=== PATIENT | female | born 1940 | race Caucasian/White ===

== ENCOUNTER → 2018-08-25 16:58 | Outpatient (CLI) | payer MEDICARE, OTHER ==
[2018-08-25 18:45] LABS: ALBUMIN 3.8 g/dL (3.4-5.0); ALKALINE PHOSPHATASE 93 U/L (46-116); ALT (SGPT) 24 U/L (10-68); BILIRUBIN - TOTAL 0.68 mg/dL (0.2-1.3); CALC OSMOLALITY 283 mosm/kg (275-300); CALCIUM 9.2 mg/dL (8.5-10.1); CARBON DIOXIDE 29.4 mmol/L (21.0-32.0); CHLORIDE - SERUM 102 mmol/L (98-107); CREATININE - SERUM 0.7 mg/dL (0.6-1.3); GLUCOSE 121 mg/dL (74-106); PROTEIN - SERUM 7.4 g/dL (6.4-8.2); SODIUM 140 mmol/L (136-145); UREA NITROGEN 24 mg/dL (7-18); eGFR NON AFRICAN AMERICAN 86 mL/min (90-120)
== END | disposition home or self-care (01) ==
LOC: D.LABREF 16:58
PROVIDERS: ATTEND Internal Medicine Cardiovascular Disease
DX: I48.91 Unspecified atrial fibrillation (principal)

== ENCOUNTER → 2019-10-10 09:20 | Outpatient (CLI) | payer MEDICARE, OTHER | END | disposition home or self-care (01) | LOC: D.HCCARDIO 09:20 | PROVIDERS: ATTEND Internal Medicine Cardiovascular Disease | DX: I25.10 Atherosclerotic heart disease of native coronary artery without angina pectoris (principal) ==

== ENCOUNTER 2019-10-19 12:06 | Outpatient (CLI) | payer MEDICARE, OTHER ==
[~2019-10-19] VITALS: Ht 167.6 cm; Wt 90.5 kg
--- NOTE | ~2019-10-19 | HEMODYNAMI ---
PATIENT:JERONIMO ADAMS MEDICAL RECORD: [id number] : 38 LOCATION:[facility] ADMISSION DATE: 10/19/19 Generatedon:10/19/201914:57 Patient name: JERONIMO ADAMS Patient #: [id number] SN: : 1940 Date of study: 10/19/2019 Page: Of Hemodynamic Procedure Report Patient Data Patient Demographics Procedure consent was obtained First Name: JERONIMO Gender: Female Last Name: BRYAN : 1940 [facility] Initial: MARJ Age: 78 year(s) Patient #: [id number] Race: Unknown Additional ID: [id number] Contact details Address: [address] [address] State: [place] City: [place] Zip code: [address] Past Medical History Allergies: No known allergies Admission Admission Data Admission Date: 10/19/2019 Admission Time: 12:06 Arrival Date: 10/19/2019 Arrival Time: 0:00 Height (in.): 66.14 BSA: 2 (m2) Height (cm.): 168 BMI: 31.89 (kg/m2) Weight (lbs.): 198.42 Weight (kg.): 90 Lab Results Lab Result Date: 10/19/2019 Lab Result Time: 0:00 Biochemistry Name Units Result Min Max BUN mg/dl 30 --(----)-* 7 18 Creatinine mg/dl 1 --(--*-)-- 0.6 1.3 eGFR ml/min 57 *-(----)-- 90 120 NONAFRICAN CBC Name Units Result Min Max Hematocrit % 41.9 -*(----)-- 42 54 Hemoglobin g/dl 13.3 -*(----)-- 13.5 17.5 Procedure Procedure Types Cath Procedure Diagnostic Procedure LHC LHC w/Coronaries w/Grafts Sedation Charges Moderate Sedation up to 15 minutes Procedure Description Procedure Date Procedure Date: 10/19/2019 Procedure Start Time: 14:28 Procedure End Time: 14:56 Procedure Staff Name Function Scout Young MD Performing Physician Giselle Cope RN Nurse Mahogany Santacruz RT Scrub Nathalie Pizarro RT Typing Checker Lexus Hightower RT Monitor Procedure Data Cath Procedure Fluoroscopy Diagnostic fluoroscopy Total fluoroscopy Time: 7.3 time: 7.3 min min Diagnostic fluoroscopy Total fluoroscopy dose: 805 dose: 805 mGy mGy Contrast Material Contrast Material Type Amount (ml) Isovue 300 99 Entry Location Entry Primary Successful Side Size Upsize Upsize Entry Closure Succes sful Closure Location (Fr) 1 (Fr) 2 (Fr) Remarks Device Remarks Femoral Right 5 Fr Exoseal artery Estimated blood loss: 5 ml Diagnostic catheters Device Type Used For End Catheter Placement DIAGNOSTIC JL 4.0 5Fr Left Coronary catheter ([id number]) Angiography DIAGNOSTIC AR MOD 5Fr Procedure Catheter (158260F) DIAGNOSTIC LCB 5Fr Procedure catheter ([id number]) DIAGNOSTIC IM 5Fr Procedure catheter (155289P) DIAGNOSTIC Pigtail 5Fr LV Angiography catheter ([id number]) Procedure Complications No complications Procedure Medications Medication Administration Route Dosage 0.9% NaCl I.V. 100 ml/hr Oxygen etCO2 Nasal cannula 2 l/min Lidocaine 2% added to field 20 Heparin Flush Bag added to field 2 bags (1000units/500ml NS) Versed I.V. 2 mg Fentanyl I.V. 50 mcg Hemodynamics Rest BSA: 2 (m2) HGB: 13.3 (g/dl) O2 Consumption: Estimated: 186.02 (ml/min) O2 Consu mption indexed: Estimated:93.01 (ml/min/m) Heart Rate: 78 (bpm) Pressure Samples Time Site Value (mmHg) Purpose Heart Use Rate(bpm) 14:51 LV 168/6,18 Snapshot 74 Gradients Valve Time Site Site Mean SEP/DFP Peak To Heart Use 1 2 (mmHg) (sec/min) Peak Rate (mmHg) (bpm) Aortic 14:52 LV AO 65 Snapshots Pre Cath Intra NCS Post Cath Vital Signs Time Heart Resp SPO2 etCO2 NIBP (mmHg) Rhythm Pain Sedation Rate (ipm) (%) (mmHg) Status Level (bpm) 14:18:38 73 29 96 26.8 132/73(93) A-Fib 0 (11) 10(A) , No pain 14:23:00 63 18 97 21.6 132/74(93) A-Fib 0 (11) 10(A) , No pain 14:27:30 73 14 98 42 126/60(101) A-Fib 0 (11) 10(A) , No pain 14:31:57 65 18 98 35.3 138/68(95) A-Fib 0 (11) 9(A) , No pain 14:36:15 79 16 98 37.5 134/76(123) A-Fib 0 (11) 9(A) , No pain 14:40:35 70 14 98 20.2 128/74(95) A-Fib 0 (11) 9(A) , No pain 14:44:59 67 12 99 39 148/71(128) A-Fib 0 (11) 9(A) , No pain 14:49:28 72 14 100 34.5 145/71(112) A-Fib 0 (11) 10(A) , No pain 14:54:00 77 12 99 18.7 147/73(102) A-Fib 0 (11) 10(A) , No pain Medications Time Medication Route Dose Verified Delivered Reason Notes Eff ectiveness by by 14:15:27 0.9% NaCl I.V. 100 Scout Giselle used for ml/hr Hector Cope automatic coin machine mechanic 14:15:33 Oxygen etCO2 2 Scout Giselle used for Nasal l/min Hector Cope procedure cannula RN 14:15:37 Lidocaine 2% added 20ml Scout Scout for local to vial Hector Young MD anesthetic field 14:15:41 Heparin Flush added 2 Scout Scout used for Bag to bags Hector Young MD procedure (1000units/500ml field NS) 14:28:06 Versed I.V. 2 mg Scout Giselle for Hector Cope sedation RN 14:28:10 Fentanyl I.V. 50 Scout Giselle for mcg Hector Cope sedation color depositing machine tender Log Time Note 14:01:00 Informed consent obtained and on chart 14:01:41 Procedure Status Elective Heart Cath (OP). 14:01:42 Time tracking: Regular hours (M-F 7:00 - 5:00) 14:01:45 Plan of Care:Hemodynamics will remain stable., Cardiac rhythm will remain stable., Comfort level will be maintained., Respiratory function will remain adequate., Patient/ family verbilizes understanding of procedure., Procedure tolerated without complication., Recovers from procedure without complications.. 14:02:06 Mahogany Noam HUMPHREYS(R) sent for patient. Start room use. 14:02:19 H&P Date Dictated: 10/11/2019 Within 30 days and on chart., H&P Addendum completed by physician on day of procedure. (MUST COMPLETE FOR ALL OUTPATIENTS). 14:02:26 Patient allergic to No known allergies 14:05:05 Lab Result : BUN 30 mg/dl 14:05:05 Lab Result : Creatinine 1 mg/dl 14:05:05 Lab Result : eGFR NONAFRICAN 57 ml/min 14:05:06 Lab Result : Hematocrit 41.9 % 14:05:06 Lab Result : Hemoglobin 13.3 g/dl 14:10:20 Patient received from Pre/Post Procedure Room to CCL 1 Alert and oriented. Tansferred to table in Supine position. 14:10:21 Warm blankets applied, and geetha hugger turned on for patient comfort. 14:10:22 Correct patient and procedure confirmed by team. 14:10:22 ECG and BP/O2 sat monitors applied to patient. 14:10:37 Pre-procedure instructions explained to patient. 14:10:37 Pre-op teaching completed and patient verbalized understanding. 14:10:39 Family in patients room. 14:10:40 Patient NPO since Midnight. 14:10:42 Is the patient allergic to Iodine/contrast media? No. 14:10:43 Is patient on blood thinner?Yes 14:11:11 ACC The patient was administered the following blood thiners within the last 24 hours: Xarelto 14:11:22 Patient diabetic? Yes. 14:11:26 Patient not . Patient is over age 55. 14:11:29 Previous problem with sedation/anesthesia? No ? 14:11:30 Snore? Yes 14:11:31 Sleep apnea? No 14:11:32 Deviated septum? No 14:11:33 Opens mouth fully? Yes 14:11:34 Sticks out tongue? Yes 14:11:37 Airway obstruction? No ? 14:11:38 Dentures? No ? 14:12:02 Patient pain scale 0/10 ?. 14:12:16 Procedure type changed to Cath procedure, Diagnostic procedure, LHC, LH C w/Coronaries w/Grafts, Sedation Charges, Moderate Sedation up to 15 minutes 14:12:21 Lab results completed and on chart. 14:13:21 Right groin area was prepped with chlora-prep and draped in sterile fashion 14:13:22 Alarms reviewed by R. N. 14:13:22 Sharps counted by scrub and verified by R.N. 14:13:30 Pre procedure: right dorsailis pedis pulse 1+ Palpable, but thready & weak; easily obliterated 14:13:56 Stress Test: yes; abnormal ANTERIOR, INFERIOR 14:14:01 Use device set Femoral Dx 14:14:02 ACIST Syringe (02752) opened to sterile field. 14:14:02 Bag Decanter (2002S) opened to sterile field. 14:14:03 ACIST Hand Control (84521) opened to sterile field. 14:14:04 ACIST Manifold (28177) opened to sterile field. 14:14:04 Tegaderm 4 x 4 (1626W) opened to sterile field. 14:15:27 0.9% NaCl 100 ml/hr I.V. was administered by Giselle Cope RN; used for procedure; Verbal order read back and verified. 14:15:33 Oxygen 2 l/min etCO2 Nasal cannula was administered by Giselle Cope RN ; used for procedure; Verbal order read back and verified. 14:15:37 Lidocaine 2% 20ml vial added to field was administered by Scout Young MD ; for local anesthetic; Verbal order read back and verified. 14:15:41 Heparin Flush Bag (1000units/500ml NS) 2 bags added to field was administered by Scout Young MD; used for procedure; Verbal order read back and verified. 14:16:58 SHEATH 5FR Wynot (THV808) opened to sterile field. 14:16:59 EMERALD Guide Wire (259-967) opened to sterile field. 14:17:15 Vital chart was started 14:17:17 Baseline sample Acquired. 14:17:38 Rhythm: atrial fibrillation 14:17:40 Full Disclosure recording started 14:17:41 - 14:18: Arrival Date: 10/19/2019 12:00:00 AM 14:18:32 Patient Height : 66.14 inches 14:18:39 Patient Weight : 198.42 lbs 14:23:50 Risk of Mortality: 0.1 14:23:54 Risk of blood transfusion: 0.3 14:23:58 Risk of VIK: 0.8 14:24:06 Physician arrived 14:24:07 --------ALL STOP TIME OUT------ 14:24:08 Final Timeout: patient, procedure, and site verified with staff and physician. All members of the team are in agreement. 14:24:11 Right groin site verified by team. 14:24:17 Fire Safety Assessment: A--An alcohol-based skin anteseptic being used preoperatively., C--Open oxygen or nitrous oxide is being used., D--An ESU, laser, or fiber-optic light is being used. 14:24:26 Physical assessment completed. ASA score P 2 - A patient with mild systemic disease as per Scout Young MD. 14:25:04 3a) 45-59 Moderately reduced kidney function. 14:25:09 Maximum allowable contrast dose (3.7 X eGFR X 0.75)158 ml. 14:25:16 Sedation plan: IV Moderate Sedation Medication:Versed, Fentanyl 14:28:06 Versed 2 mg I.V. was administered by Giselle Cope RN; for sedation; Verbal order read back and verified. 14:28:10 Fentanyl 50 mcg I.V. was administered by Giselle Cope RN; for sedation ; Verbal order read back and verified. 14:28:49 Procedure started. 14:28:55 Local anesthetic to right femoral artery with Lidocaine 2% by Scout sagastume MD.INITIAL ACCESS ONLY 14:30:03 Zero performed for pressure channel P1 14:30:39 A 5 Fr sheath was inserted into the Right Femoral artery 14:33:02 A DIAGNOSTIC JL 4.0 5Fr catheter ([id number]) was advanced over the wire and used for Left Coronary Angiography. 14:33:49 LCA angiography performed. 14:33:53 Injector settings: Ml/sec: 3, Volume: 6, 14:34:57 Catheter removed. 14:35:49 A DIAGNOSTIC AR MOD 5Fr Catheter ([id number]) was advanced over the wire and used for Procedure. 14:36:42 RCA angiography performed AND CLOSED. 14:37:05 Injector settings: Ml/sec: 3, Volume: 6, 14:38:37 SVG to RPDA angiography performed. 14:38:41 Injector settings: Ml/sec: 3, Volume: 6, 14:39:01 Catheter removed. 14:39:36 A DIAGNOSTIC LCB 5Fr catheter (308014H) was advanced over the wire and used for Procedure. 14:41:09 SVG to Circ angiography performed. 14:41:15 Injector settings: Ml/sec: 3, Volume: 6, 14:41:17 Catheter removed. 14:41:29 A DIAGNOSTIC IM 5Fr catheter (159810D) was advanced over the wire and used for Procedure. 14:44:00 GLIDE WIRE ANGLE 260cm (GF6543) opened to sterile field. 14:44:48 TORQUE DEVICE PLASTIC .038 ( TD01) opened to sterile field. 14:47:02 CHAN to LAD angiography performed. 14:47:10 Injector settings: Ml/sec: 3, Volume: 6, 14:49:20 Catheter removed. 14:49:52 A DIAGNOSTIC Pigtail 5Fr catheter (616881Y) was advanced over the wire and used for LV Angiography. 14:49:58 EXOSEAL 5Fr (EX500) opened to sterile field. 14:50:12 LV gram done using PARR 14:50:17 Injector settings: Ml/sec: 5, Volume: 15, 14:51:26 LV hemodynamics recorded. 14:51:40 EF : 45 % 14:52:00 Catheter removed. 14:52:36 Sheath removed intact; hemostasis achieved with Exoseal to the Right Femoral artery. 14:52:45 Contrast amount:Isovue 300 99ml. 14:52:48 Maximum allowable dose exceeded? No. 14:52:56 Fluoroscopy time 07.30 minutes. 14:53:01 Fluoroscopy dose: 805 mGy 14:53:01 Flurop Dose total: 805 14:53:09 Dose Area Product 27671 mGy/cm. 14:53:11 Procedure ended.(Physican Out) 14:53:24 Sharps counted by scrub and verified by R.N. 14:53:30 Post-op/insertion site Right Femoral artery dressed using a 4 x 4 and Tegaderm. 14:53:38 Post-procedure physical assessment completed. ASA score P 2 - A patient with mild systemic disease as per Scout Young MD. 14:53:58 Post procedure rhythm: unchanged. 14:54:02 Estimated blood loss: 5 ml 14:54:09 Post procedure instruction explained to patient.Patient verbalizes understanding. 14:54:11 Patient needs reinforcement of post procedure teaching. 14:54:54 Procedure and supply charges have been captured, reviewed, submitted an d are correct. 14:55:32 Procedure Complication : No complications 14:55:35 Vital chart was stopped 14:55:41 [facility] Findings: mild to moderate CAD (<70%) 14:55:47 Operative report dictated upon procedure completion. 14:55:49 See physician's report for complete and final results. 14:55:51 Report given to Pre/Post Procedure Room. 14:55:56 Patient transfered to Pre/Post Procedure Room with Stretcher. 14:56:05 Procedure ended. 14:56:05 Full Disclosure recording stopped 14:56:11 End room use (Document Last) Device Usage Item Name Manufacture Quantity Catalog Hospital Part Current Minimal Lot# / Number Charge Number Stock Stock Serial# Code ACIST Acist 1 02967 204263 627191 [id number] 20 Syringe Medical (58671) Systems Inc Bag Microtek 1 759573 01508 991383 5 Decanter Medical Inc. () ACIST Hand Acist 1 20630 090221 565832 901454 5 Control Medical (90651) Systems Inc ACIST Acist 1 83581 088022 007565 521780 5 Manifold Medical (57018) Systems Inc Tegaderm 4 3M 1 1626W 032659 716812 146707 5 x 4 (1626W) SHEATH 5FR Terumo 1 [id number] 463453 633844 702456 5 Wynot (SGU233) EMERALD Cardinal 1 502-455 322568 159671 799587 5 Guide Wire [facility] (502-455) DIAGNOSTIC Cardinal 1 600600P 413254 360373 642588 10 JL 4.0 5Fr Health catheter (763751G) DIAGNOSTIC Cardinal 1 001789M 316788 779733 379220 15 AR MOD 5Fr Health Catheter (048905T) DIAGNOSTIC Cardinal 1 197603H 540296 097842 787863 5 LCB 5Fr Health catheter (036237S) DIAGNOSTIC Cardinal 1 249340H 479034 175796 912886 5 IM 5Fr Health catheter (678439H) GLIDE WIRE Terumo 1 HQ2788 934602 333322 173890 5 ANGLE 260cm (RG3137) TORQUE [place] 1 TD01 408096 584048 104202 5 DEVICE Scientific PLASTIC .038 ( TD01) DIAGNOSTIC Cardinal 1 548555I 157009 913895 096685 5 Pigtail Health 5Fr catheter (542369A) EXOSEAL Cardinal 1 EX500 491317 209165 722346 10 5Fr Health (EX500) Signature Audit [place] Stage Time Signature Unsigned Intra-Procedure 10/19/2019 [place] 2:56:43 PM Campbell RT(R) (CV) Intra-Procedure 10/19/2019 Giselle Cope 2:57:16 PM RN Intra-Procedure 10/19/2019 Scout Young MD 2:57:44 PM [id number] [place] [address]
[2019-10-19] MEDS ORDERED: XARELTO20 MG PO (12:51)
[2019-10-19] MEDS ORDERED: METFORMIN HCL500 M1 PO (12:51)
[2019-10-19] MEDS ORDERED: CRESTOR20 MG PO (12:56)
[2019-10-19] MEDS ORDERED: FUROSEMIDE40 MG PO (12:56)
[2019-10-19] MEDS ORDERED: MICARDIS40 MG PO (12:57)
[2019-10-19] MEDS ORDERED: KLOR-CON 1010 MEQ PO (12:58)
[2019-10-19] MEDS ORDERED: ZYLOPRIM100 MG PO (12:58)
[2019-10-19 13:15] VITALS: BP 157/77; Ht 167.6 cm; Wt 90.5 kg
[2019-10-19 13:30] LABS: BASOPHILS 0.4 % (0-2); EOSINOPHILS 2.2 % (0-7); HEMATOCRIT 41.9 % (36.0-48.0); HEMOGLOBIN 13.3 g/dL (12-16); IMMATURE GRANULOCYTES 0.2 % (0-5); LYMPHOCYTES 26.2 % (15-50); MCH 30.1 pg (26.0-34.0); MCHC 31.7 g/dL (31.0-37.0); MCV 94.8 fL (80.0-100.0); MEAN PLATELET VOLUME 9.5 fL (7.4-10.4); MONOCYTES 5.6 % (2-11); NEUTROPHILS 65.4 % (40-80); PLATELET COUNT 204 10x3/uL (130-400); RBC 4.42 10x6/uL (4.00-5.40); WBC 5.6 10x3/uL (4.8-10.8)
[2019-10-19 13:45] LABS: ANION GAP 7.9 mmol/L (8-16); CALCIUM 9.5 mg/dL (8.5-10.1); CARBON DIOXIDE 30.4 mmol/L (21.0-32.0); CHOL - HDL RATIO 3.7 ratio (2.3-4.1); LDL-HDL RATIO 2.3 ratio (1.5-3.5); POTASSIUM - SERUM 4.3 mmol/L (3.5-5.1)
--- NOTE | 2019-10-19 15:05 | NUR ---
PT ARRIVED BY STRETCHER. PLACED ON MONITORS. ASSESSMENT COMPLETED. VSS AT THIS TIME. FAMILY AT BEDSIDE.
--- NOTE | 2019-10-19 15:10 | NUR ---
DR. BARNES AT BEDSIDE SPEAKING WITH PT AND PT'S FAMILY.
--- NOTE | 2019-10-19 15:20 | NUR ---
RIGHT GROIN DRESSING C/D/I. NO S/S OF HEMATOMA NOTED. CALL LIGHT WITHIN REACH. VSS AT THIS TIME.
--- NOTE | 2019-10-19 15:50 | NUR ---
RIGHT GROIN DRESSING C/D/I. NO S/S OF HEMATOMA NOTED. CALL LIGHT WITHIN REACH. VSS. FAMILY AT BEDSIDE.
--- NOTE | 2019-10-19 16:10 | NUR ---
RIGHT GROIN DRESSING C/D/I. NO S/S OF HEMATOMA NOTED. CALL LIGHT WITHIN REACH. HEAD OF BED INC TO 30 DEGREES. TOLERATED WELL. SET UP WITH SANDWICH TRAY AND DRINK. DENIES NAUSEA/PAIN.
--- NOTE | 2019-10-19 17:00 | NUR ---
RIGHT GROIN DRESSING C/D/I. NO S/S OF HEMATOMA NOTED. PIV D/C'D WITH CATH TIP INTACT. TOLERATED WELL. PT INSTRUCTED TO GET DRESSED AT THIS TIME. DAUGHTER AT BEDSIDE TO ASSIST. DISCUSSED DISCHARGE INSTRUCTIONS WITH PT AND PT'S DAUGHTER.
--- NOTE | 2019-10-19 17:15 | NUR ---
PT AMBULATED TO RESTROOM. VOIDED WITHOUT DIFFICULTY. STEADY GAIT NOTED. RIGHT GROIN DRESSING C/D/I. NO S/S OF HEMATOMA NOTED. PT TAKEN DOWN TO VEHICLE BY WHEELCHAIR. NO S/S OF DISTRESS NOTED. ALL BELONGINGS AND PAPERWORK IN HAND.
== END 2019-10-19 17:15 | disposition home or self-care (01) ==
LOC: D.CATH 12:06
PROVIDERS: ATTEND Internal Medicine Cardiovascular Disease
DX: I25.10 Atherosclerotic heart disease of native coronary artery without angina pectoris (principal); R94.39 Abnormal result of other cardiovascular function study; E11.9 Type 2 diabetes mellitus without complications; Z79.84 Long term (current) use of oral hypoglycemic drugs; I25.2 Old myocardial infarction; I10 Essential (primary) hypertension; I48.91 Unspecified atrial fibrillation